=== PATIENT | male | born 1950 | race Asian ===

== ENCOUNTER 2017-05-08 09:08 | Emergency (ER) | payer OTHER ==
[~2017-05-08] VITALS: Ht 175.3 cm; Wt 85.9 kg
[2017-05-08] MEDS ORDERED: MECLIZINE HCL 25 MG TABLET PO ONE (09:15)
[2017-05-08] MEDS ORDERED: MECL12.585 PO (09:15)
[2017-05-08 10:51] VITALS: BP 135/94
== END 2017-05-08 11:21 | disposition home or self-care (01) ==
LOC: EMS 09:09
DX: R42 Dizziness and giddiness (principal); R11.0 Nausea
CPT/HCPCS: 70450; 99284

== ENCOUNTER 2017-10-31 12:47 | Emergency (ER) | payer BC, OTHER ==
[~2017-10-31] VITALS: Ht 175.3 cm; Wt 72.7 kg
[~2017-10-31 12:47] MED LIST: MECL12.585 PO
[2017-10-31 14:17] LABS: INFLUENZA TYPE A NEGATIVE FOR TYPE A (NEGATIVE); INFLUENZA TYPE B NEGATIVE FOR TYPE B (NEGATIVE)
[2017-10-31] MEDS ORDERED: METHOCARBAMOL 500 MG TABLET PO ONE (19:00)
[2017-10-31] MEDS ORDERED: LIDOCAINE HCL 5% TRANSDERMAL PATCH TD ONE (19:00)
[2017-10-31] MEDS ORDERED: KETOROLAC TROMETHAMINE 30 MG/ML VIAL IM ONE (19:00)
[2017-10-31 20:03] LABS: BASOPHILS # (AUTO) 0.05 K/uL (0.00-0.20); BASOPHILS % (AUTO) 0.5 % (0.0-2.0); EOSINOPHILS # (AUTO) 0.13 K/uL (0.00-0.70); EOSINOPHILS % (AUTO) 1.38 % (1.0-6.0); HEMOGLOBIN 12.9 g/dL (13.5-17.5); LYMPHOCYTES # (AUTO) 1.3 K/uL (1.0-4.8); LYMPHOCYTES % (AUTO) 14.3 % (22.0-44.0); MEAN CORPUSCULAR HEMOGLOBIN 29.2 pg (26.0-34.0); MEAN CORPUSCULAR HGB CONC 33.1 G/dL (31.0-37.0); MEAN CORPUSCULAR VOLUME 88 fL (80-100); MONOCYTES # (AUTO) 0.5 K/uL (0.1-1.0); MONOCYTES % (AUTO) 5.8 % (2.0-9.0); NEUTROPHILS # (AUTO) 7.2 K/uL (1.8-7.7); NEUTROPHILS % (AUTO) 78.1 % (40.0-70.0); PLATELET COUNT (AUTO) 316 K/uL (150-450); RED BLOOD CELL COUNT(AUTO) 4.42 MIL/uL (4.50-5.90); RED CELL DISTRIBUTION WIDTH 14.1 % (11.5-14.5)
[2017-10-31 20:37] LABS: ANION GAP 8 mmol/L (8-16); CALCIUM, TOTAL 8.5 mg/dL (8.8-10.5); CARBON DIOXIDE 28 mmol/L (22-29); CHLORIDE 100 mmol/L (98-107); CREATININE 0.89 mg/dL (0.60-1.30); GLOMERULAR FILTR. RATE CALC > 60 mL/min (>60); GLUCOSE,RANDOM 103 mg/dL (70-110); POTASSIUM 3.1 mmol/L (3.5-5.1); SODIUM SERUM 136 mmol/L (136-145); UREA NITROGEN, BLOOD 8 mg/dL (7-18)
[2017-10-31 20:51] VITALS: BP 143/87
== END 2017-10-31 21:26 | disposition home or self-care (01) ==
LOC: EMS 12:50
DX: M54.41 Lumbago with sciatica, right side (principal); J40 Bronchitis, not specified as acute or chronic; R03.0 Elevated blood-pressure reading, without diagnosis of hypertension
CPT/HCPCS: 36415; 71046; 72100; 80048; 85025; 87804; 96372; 99285; J1885

== ENCOUNTER 2017-11-12 09:59 | Inpatient (IN) | payer BC, OTHER ==
[~2017-11-12] VITALS: Ht 175.3 cm; Wt 73.6 kg
[2017-11-12] MEDS ORDERED: TRAM50TA4 PO (10:03)
[2017-11-12 10:25] LABS: BASOPHILS % (AUTO) 0.5 % (0.0-2.0); EOSINOPHILS % (AUTO) 2.5 % (1.0-6.0); HEMATOCRIT 39.4 % (41-53); HEMOGLOBIN 13.4 g/dL (13.5-17.5); LYMPHOCYTES % (AUTO) 8.6 % (22.0-44.0); MEAN CORPUSCULAR HEMOGLOBIN 29.9 pg (26.0-34.0); MEAN CORPUSCULAR VOLUME 88 fL (80-100); MONOCYTES # (AUTO) 0.8 K/uL (0.1-1.0); MONOCYTES % (AUTO) 6.6 % (2.0-9.0); NEUTROPHILS # (AUTO) 9.8 K/uL (1.8-7.7); NEUTROPHILS % (AUTO) 81.8 % (40.0-70.0); PLATELET COUNT (AUTO) 426 K/uL (150-450); RED BLOOD CELL COUNT(AUTO) 4.48 MIL/uL (4.50-5.90); RED CELL DISTRIBUTION WIDTH 13.8 % (11.5-14.5)
[2017-11-12] MEDS ORDERED: HYDROmorphone 2 MG/ML SYRINGE IVP ONE ×2 (11:45→12:45)
[2017-11-12] MEDS ORDERED: ONDANSETRON HCL 4 MG/2 ML VIAL IVP ONE (11:45)
[2017-11-12 11:51] LABS: CALCIUM, TOTAL 9.5 mg/dL (8.8-10.5); CREATININE 1.24 mg/dL (0.60-1.30); POTASSIUM 4.5 mmol/L (3.5-5.1)
[2017-11-12 11:57] LABS: ALBUMIN 2.5 g/dL (3.4-5.0); BILIRUBIN,TOTAL 1.7 mg/dL (0.1-1.0); TOTAL PROTEIN, SERUM 8.9 g/dL (6.4-8.2)
[2017-11-12 13:05] LABS: APPEARANCE,URINE CLEAR (CLEAR); GLUCOSE, URINE (UA) NEGATIVE (NEGATIVE); KETONES,URINE >=80 mg/dL (NEGATIVE); LEUKOCYTE ESTERASE ,URINE TRACE (NEGATIVE); NITRATE,URINE NEGATIVE (NEGATIVE); OCCULT BLOOD,URINE NEGATIVE (NEGATIVE); PH,URINE 6.5 (5.0-8.0); PROTEIN,URINE TRACE (NEGATIVE)
[2017-11-12 13:06] LABS: BILIRUBIN,URINE PRELIM. POSITIVE (NEGATIVE); RBC,URINE None Seen /HPF (0-2); WBC,URINE 0-2 /HPF (0-5)
[2017-11-12 13:07] LABS: BACTERIA,URINE None Seen /HPF (None Seen); RENAL EPITHELIAL CELLS,URINE Rare /LPF (None Seen)
[2017-11-12] MEDS ORDERED: ONDANSETRON HCL 4 MG/2 ML VIAL IVP PRN ×2 (13:45→21:00)
[2017-11-12] MEDS ORDERED: 0.9% SODIUM CHLORIDE 10 ML SYRINGE IVP PRN (13:45)
[2017-11-12] MEDS ORDERED: ACETAMINOPHEN 325 MG TABLET PO PRN ×2 (13:45→21:00)
[2017-11-12] MEDS ORDERED: HYDROmorphone 2 MG/ML SYRINGE IVP PRN (13:45)
[2017-11-12] MEDS ORDERED: OxyCODONE HCL/ACETAMINOPHEN 5-325 MG TABLET PO PRN (13:45)
[2017-11-12] MEDS ORDERED: MethylPREDNISolone SOD SUCC 125 MG/2 ML VIAL IVP ONE (14:00)
[2017-11-12] MEDS ORDERED: DiphenhydrAMINE HCL 50 MG/ML VIAL IVP ONE (14:00)
[2017-11-12] MEDS ORDERED: IOVERSOL 320 MG/ML 100 ML VIAL ONE (15:16)
[2017-11-12] MEDS ORDERED: SODIUM CHLORIDE 0.9% 1,000 ML IV ONE ×2 (16:00→21:45)
[2017-11-12 16:57] VITALS: BP 144/91
[2017-11-12 19:28] VITALS: BP 113/78
[2017-11-12] MEDS ORDERED: ALBUTEROL SULFATE 2.5 MG/0.5 ML NEB SOLUTION NEB PRN (21:00)
[2017-11-12] MEDS ORDERED: MAGNESIUM HYDROXIDE SUSPENSION 30 ML UDCUP PO PRN (21:00)
[2017-11-12] MEDS ORDERED: BISACODYL 10 MG RECTAL RECTAL SUPPOSITORY PR PRN (21:00)
[2017-11-12] MEDS: DOCUSATE SODIUM 100 MG CAPSULE PO SCH (22:01)
[2017-11-12 22:27] LABS: INR 1.2 (0.9-1.1); PROTHROMBIN TIME 12.5 SEC (9.4-11.6)
[2017-11-12 23:11] VITALS: BP 127/78
[2017-11-13 04:14] VITALS: BP 120/72
[2017-11-13] MEDS ORDERED: INFLUENZA VIRUS VACCINE QVS 2017-18 (3YR+)/PF 60 MCG/0.5 ML SYRINGE IM ONE (06:30)
[2017-11-13] MEDS: MORPHINE SULFATE 2 MG/ML SYRINGE IVP PRN ×2 (06:43→18:56)
[2017-11-13 08:02] VITALS: BP 123/80
[2017-11-13 08:15] LABS: BASOPHILS # (AUTO) 0.02 K/uL (0.00-0.20); BASOPHILS % (AUTO) 0.2 % (0.0-2.0); EOSINOPHILS % (AUTO) 0 % (1.0-6.0); HEMATOCRIT 39.8 % (41-53); HEMOGLOBIN 13.4 g/dL (13.5-17.5); LYMPHOCYTES # (AUTO) 0.6 K/uL (1.0-4.8); LYMPHOCYTES % (AUTO) 5.1 % (22.0-44.0); MEAN CORPUSCULAR HEMOGLOBIN 29.8 pg (26.0-34.0); MEAN CORPUSCULAR HGB CONC 33.6 G/dL (31.0-37.0); MEAN CORPUSCULAR VOLUME 89 fL (80-100); MONOCYTES # (AUTO) 0.3 K/uL (0.1-1.0); MONOCYTES % (AUTO) 2.1 % (2.0-9.0); NEUTROPHILS # (AUTO) 11.7 K/uL (1.8-7.7); PLATELET COUNT (AUTO) 427 K/uL (150-450); RED CELL DISTRIBUTION WIDTH 14.2 % (11.5-14.5)
[2017-11-13 08:18] LABS: NEUTROPHILS % (AUTO) 92.7 % (40.0-70.0)
[2017-11-13 08:21] LABS: ANION GAP 9 mmol/L (8-16); CALCIUM, TOTAL 9.1 mg/dL (8.8-10.5); CARBON DIOXIDE 28 mmol/L (22-29); CHLORIDE 100 mmol/L (98-107); CREATININE 0.88 mg/dL (0.60-1.30); GLOMERULAR FILTR. RATE CALC > 60 mL/min (>60); GLUCOSE,RANDOM 142 mg/dL (70-110); POTASSIUM 4.5 mmol/L (3.5-5.1); SODIUM SERUM 137 mmol/L (136-145); UREA NITROGEN, BLOOD 13 mg/dL (7-18)
[2017-11-13] MEDS ORDERED: ENOXAPARIN SODIUM 40 MG/0.4 ML PF SYRINGE SQ SCH (09:00)
[2017-11-13] MEDS ORDERED: FentaNYL CITRATE-PF 100 MCG/2 ML VIAL ONE (09:32)
[2017-11-13] MEDS ORDERED: MIDAZOLAM HCL 2 MG/2 ML VIAL ONE (09:32)
[2017-11-13] MEDS ORDERED: NALOXONE HCL 0.4 MG/ML VIAL ONE (09:33)
[2017-11-13] MEDS ORDERED: LIDOCAINE HCL/PF 1% 30 ML VIAL ONE (09:33)
[2017-11-13] MEDS ORDERED: FLUMAZENIL 0.1 MG/ML 5 ML VIAL IVP ONE (09:33)
[2017-11-13] MEDS ORDERED: FentaNYL CITRATE-PF 100 MCG/2 ML VIAL IVP ONE (10:09)
[2017-11-13] MEDS ORDERED: MIDAZOLAM HCL 2 MG/2 ML VIAL IVP ONE (10:09)
[2017-11-13] MEDS: DOCUSATE SODIUM 100 MG CAPSULE PO SCH ×2 (10:49→20:47)
[2017-11-13] MEDS: OxyCODONE HCL/ACETAMINOPHEN 5-325 MG TABLET PO PRN ×2 (10:49→20:46)
[2017-11-13] MEDS: PANTOPRAZOLE SODIUM 40 MG DR TABLET PO SCH (10:49)
[2017-11-13 11:29] VITALS: BP 118/76
[2017-11-13 15:35] VITALS: BP 117/79
[2017-11-13 19:43] VITALS: BP 115/75
[2017-11-13 23:44] VITALS: BP 116/64
[2017-11-14] MEDS: MORPHINE SULFATE 2 MG/ML SYRINGE IVP PRN ×4 (01:26→11:33)
[2017-11-14] MEDS: OxyCODONE HCL/ACETAMINOPHEN 5-325 MG TABLET PO PRN ×3 (03:17→18:08)
[2017-11-14 03:22] VITALS: BP 127/83
[2017-11-14 07:54] VITALS: BP 136/88
[2017-11-14 08:37] VITALS: BP 132/86
[2017-11-14] MEDS ORDERED: ENOXAPARIN SODIUM 40 MG/0.4 ML PF SYRINGE SQ SCH (09:00)
[2017-11-14] MEDS: PANTOPRAZOLE SODIUM 40 MG DR TABLET PO SCH (09:21)
[2017-11-14] MEDS: DOCUSATE SODIUM 100 MG CAPSULE PO SCH (09:21)
[2017-11-14 12:41] VITALS: BP 134/86
[2017-11-14] MEDS: MORPHINE SULFATE 4 MG/ML SYRINGE IVP PRN ×2 (16:02→18:42)
[2017-11-14 16:20] VITALS: BP 119/75
[2017-11-14] MEDS ORDERED: HYDR-309 PO (18:31)
[2017-11-14] MEDS ORDERED: DOCU100C33 PO (18:32)
== END 2017-11-14 19:00 | disposition home or self-care (01) | DRG 204 ==
LOC: EMS 10:00 → 4E 14:19
PROVIDERS: ADMIT Internal Medicine; ATTEND Internal Medicine
PROC: 0BBJ3ZX Excision of Left Lower Lung Lobe, Percutaneous Approach, Diagnostic (ICD-10-PCS; principal; 2017-11-13)
PROC: 3E0234Z Introduction of Serum, Toxoid and Vaccine into Muscle, Percutaneous Approach (ICD-10-PCS; 2017-11-13)
DX: R91.8 Other nonspecific abnormal finding of lung field (principal); C79.51 Secondary malignant neoplasm of bone; C80.1 Malignant (primary) neoplasm, unspecified; E87.1 Hypo-osmolality and hyponatremia; N28.89 Other specified disorders of kidney and ureter; Z79.899 Other long term (current) drug therapy; Z23 Encounter for immunization
CPT/HCPCS: 32405; 71260; 72193; 74160; 74176; 87015; 87070; 87205; 88305; 88341; 88342; 93005; 96374; 96375; 96376; 99285; J1170; J1200; J1650; J2250; J2270; J2310; J2405; J2930; J3010; J3490; J7030

== ENCOUNTER 2018-01-15 07:24 | Emergency (ER) | payer MEDICARE, OTHER ==
[~2018-01-15] VITALS: Ht 175.3 cm; Wt 65.0 kg
[~2018-01-15 07:24] MED LIST changes: +DOCU100C33 PO; +FENT100PAT TD; -MECL12.585 PO; +MEDR4 PO; +ONDA4 PO; +OXYC10IR PO
[2018-01-15 07:57] LABS: BASOPHILS % (AUTO) 1.1 % (0.0-2.0); EOSINOPHILS % (AUTO) 1.8 % (1.0-6.0); HEMATOCRIT 31.8 % (41-53); HEMOGLOBIN 10.7 g/dL (13.5-17.5); LYMPHOCYTES # (AUTO) 1.4 K/uL (1.0-4.8); MEAN CORPUSCULAR HEMOGLOBIN 28.3 pg (26.0-34.0); MEAN CORPUSCULAR HGB CONC 33.7 G/dL (31.0-37.0); MEAN CORPUSCULAR VOLUME 84 fL (80-100); MONOCYTES # (AUTO) 0.7 K/uL (0.1-1.0); MONOCYTES % (AUTO) 4.7 % (2.0-9.0); NEUTROPHILS # (AUTO) 12.7 K/uL (1.8-7.7); NEUTROPHILS % (AUTO) 83.4 % (40.0-70.0); PLATELET COUNT (AUTO) 558 K/uL (150-450); RED BLOOD CELL COUNT(AUTO) 3.78 MIL/uL (4.50-5.90); RED CELL DISTRIBUTION WIDTH 16.1 % (11.5-14.5)
[2018-01-15 08:03] LABS: BILIRUBIN,URINE NEGATIVE (NEGATIVE); GLUCOSE, URINE (UA) NEGATIVE (NEGATIVE); KETONES,URINE NEGATIVE (NEGATIVE); LEUKOCYTE ESTERASE ,URINE SMALL (NEGATIVE); NITRATE,URINE NEGATIVE (NEGATIVE); OCCULT BLOOD,URINE LARGE (NEGATIVE); PH,URINE 7.5 (5.0-8.0); PROTEIN,URINE NEGATIVE (NEGATIVE)
[2018-01-15 08:06] LABS: ANION GAP 9 mmol/L (8-16); CARBON DIOXIDE 31 mmol/L (22-29); CHLORIDE 94 mmol/L (98-107); CREATININE 0.76 mg/dL (0.60-1.30); GLOMERULAR FILTR. RATE CALC > 60 mL/min (>60); GLUCOSE,RANDOM 115 mg/dL (70-110); POTASSIUM 3.5 mmol/L (3.5-5.1); SODIUM SERUM 134 mmol/L (136-145); UREA NITROGEN, BLOOD 9 mg/dL (7-18)
[2018-01-15 08:10] LABS: INR 1.1 (0.9-1.1); PROTHROMBIN TIME 11.3 SEC (9.4-11.6)
[2018-01-15 08:10] LABS: APPEARANCE,URINE HAZY (CLEAR)
[2018-01-15 08:11] LABS: ALANINE AMINOTRANSFERASE 96 U/L (12-78); ALBUMIN 1.8 g/dL (3.4-5.0); ALKALINE PHOSPHATASE 184 U/L (46-116); ASPARTATE AMINOTRANSFERASE 41 U/L (15-37); BILIRUBIN,TOTAL 0.5 mg/dL (0.1-1.0); TOTAL PROTEIN, SERUM 7.9 g/dL (6.4-8.2)
[2018-01-15 08:14] LABS: BACTERIA,URINE Few /HPF (None Seen); SQUAMOUS EPITHELIAL CELL,UR None Seen /LPF (None Seen)
[2018-01-15] MEDS ORDERED: ONDANSETRON HCL 4 MG/2 ML VIAL IVP ONE (08:15)
[2018-01-15] MEDS ORDERED: MORPHINE SULFATE 4 MG/ML SYRINGE IVP ONE ×2 (08:15→14:30)
[2018-01-15] MEDS ORDERED: SODIUM CHLORIDE 0.9% 1,000 ML IV ONE (09:15)
[2018-01-15] MEDS ORDERED: FentaNYL CITRATE-PF 100 MCG/2 ML VIAL ONE (11:06)
[2018-01-15] MEDS ORDERED: LIDOCAINE HCL/PF 1% 30 ML VIAL ONE (11:06)
[2018-01-15] MEDS ORDERED: MIDAZOLAM HCL 2 MG/2 ML VIAL ONE (11:06)
[2018-01-15] MEDS ORDERED: FentaNYL CITRATE-PF 100 MCG/2 ML VIAL IVP ONE (12:10)
[2018-01-15] MEDS ORDERED: MIDAZOLAM HCL 2 MG/2 ML VIAL IVP ONE (12:10)
[2018-01-15] MEDS ORDERED: CIPROFLOXACIN HCL 250 MG TABLET PO ONE (14:00)
[2018-01-15 14:40] VITALS: BP 127/85
== END 2018-01-15 15:10 | disposition home or self-care (01) ==
LOC: EMS 07:25
DX: T83.090A Other mechanical complication of cystostomy catheter, initial encounter (principal); C78.00 Secondary malignant neoplasm of unspecified lung; G89.29 Other chronic pain; R33.9 Retention of urine, unspecified; F11.90 Opioid use, unspecified, uncomplicated; Z88.8 Allergy status to other drugs, medicaments and biological substances
CPT/HCPCS: 36415; 76770; 77012; 80053; 81001; 85025; 85610; 85730; 87086; 96361; 96374; 96375; 96376; 99285; J2250; J2270; J2405; J3010; J7030; J3490

== ENCOUNTER 2018-02-03 08:20 | Emergency (ER) | payer OTHER, MEDICARE ==
[~2018-02-03] VITALS: Ht 177.8 cm; Wt 63.6 kg
[2018-02-03] MEDS ORDERED: MORP10SY4 PO (08:49)
[2018-02-03] MEDS ORDERED: LORA2TAB2 PO (08:49)
[2018-02-03 09:06] LABS: EOSINOPHILS % (AUTO) 0.6 % (1.0-6.0); HEMATOCRIT 28.6 % (41-53); HEMOGLOBIN 9.5 g/dL (13.5-17.5); LYMPHOCYTES # (AUTO) 0.4 K/uL (1.0-4.8); LYMPHOCYTES % (AUTO) 2.7 % (22.0-44.0); MEAN CORPUSCULAR HGB CONC 33.4 G/dL (31.0-37.0); MEAN CORPUSCULAR VOLUME 84 fL (80-100); MONOCYTES # (AUTO) 0.7 K/uL (0.1-1.0); MONOCYTES % (AUTO) 4.2 % (2.0-9.0); NEUTROPHILS # (AUTO) 15.3 K/uL (1.8-7.7); PLATELET COUNT (AUTO) 633 K/uL (150-450); RED BLOOD CELL COUNT(AUTO) 3.41 MIL/uL (4.50-5.90); RED CELL DISTRIBUTION WIDTH 16.5 % (11.5-14.5)
[2018-02-03 09:09] LABS: NEUTROPHILS % (AUTO) 92.5 % (40.0-70.0)
[2018-02-03 09:19] LABS: INR 1.2 (0.9-1.1); PROTHROMBIN TIME 12.2 SEC (9.4-11.6)
[2018-02-03 09:22] LABS: ANION GAP 6 mmol/L (8-16); CALCIUM, TOTAL 9.5 mg/dL (8.8-10.5); CARBON DIOXIDE 31 mmol/L (22-29); CHLORIDE 90 mmol/L (98-107); CREATININE 0.69 mg/dL (0.60-1.30); GLOMERULAR FILTR. RATE CALC > 60 mL/min (>60); GLUCOSE,RANDOM 127 mg/dL (70-110); POTASSIUM 3.8 mmol/L (3.5-5.1); SODIUM SERUM 127 mmol/L (136-145); UREA NITROGEN, BLOOD 15 mg/dL (7-18)
[2018-02-03 09:28] LABS: ALANINE AMINOTRANSFERASE 75 U/L (12-78); ALBUMIN 1.6 g/dL (3.4-5.0); ALKALINE PHOSPHATASE 281 U/L (46-116); ASPARTATE AMINOTRANSFERASE 49 U/L (15-37); BILIRUBIN,TOTAL 0.9 mg/dL (0.1-1.0); TOTAL PROTEIN, SERUM 7.8 g/dL (6.4-8.2)
[2018-02-03] MEDS ORDERED: LIDOCAINE HCL/PF 1% 5 ML VIAL ONE (09:45)
[2018-02-03] MEDS ORDERED: FentaNYL CITRATE-PF 100 MCG/2 ML VIAL ONE (09:46)
[2018-02-03] MEDS ORDERED: MIDAZOLAM HCL 2 MG/2 ML VIAL ONE (09:47)
[2018-02-03] MEDS ORDERED: NALOXONE HCL 0.4 MG/ML VIAL ONE (09:47)
[2018-02-03] MEDS ORDERED: FLUMAZENIL 0.1 MG/ML 5 ML VIAL IVP ONE (09:47)
[2018-02-03] MEDS ORDERED: FentaNYL CITRATE-PF 100 MCG/2 ML VIAL IVP ONE (11:12)
[2018-02-03] MEDS ORDERED: MIDAZOLAM HCL 2 MG/2 ML VIAL IVP ONE (11:12)
[2018-02-03] MEDS ORDERED: SODIUM CHLORIDE 0.9% 1,000 ML IV ONE (12:15)
[2018-02-03 13:54] VITALS: BP 120/62
== END 2018-02-03 14:19 | disposition home or self-care (01) ==
LOC: EMS 08:22
DX: Z46.6 Encounter for fitting and adjustment of urinary device (principal); M19.90 Unspecified osteoarthritis, unspecified site; R79.1 Abnormal coagulation profile; Z85.118 Personal history of other malignant neoplasm of bronchus and lung; Z79.899 Other long term (current) drug therapy
CPT/HCPCS: 36415; 77012; 80053; 85025; 85610; 85730; 96374; 96375; 99285; J2250; J3010; J3490; J7030; J2310

== ENCOUNTER 2018-02-14 11:35 | Emergency (ER) | payer MEDICARE, OTHER ==
[~2018-02-14] VITALS: Ht 170.2 cm; Wt 70.5 kg
[~2018-02-14 11:35] MED LIST changes: +LORA2TAB2 PO; +MORP10SY4 PO
[2018-02-14] MEDS ORDERED: MORPHINE SULFATE 10 MG/ML SYRINGE IVP ONE (11:45)
[2018-02-14] MEDS ORDERED: MORPHINE SULFATE 10 MG/5 ML SOLUTION UDCUP PO ONE (11:45)
[2018-02-14] MEDS ORDERED: ONDANSETRON HCL 4 MG TABLET PO ONE (11:45)
[2018-02-14] MEDS ORDERED: ONDANSETRON HCL 4 MG/2 ML VIAL IVP ONE ×3 (12:15→20:15)
[2018-02-14 12:21] LABS: BASOPHILS % (AUTO) 0.7 % (0.0-2.0); EOSINOPHILS % (AUTO) 0.7 % (1.0-6.0); HEMATOCRIT 27.4 % (41-53); LYMPHOCYTES # (AUTO) 0.5 K/uL (1.0-4.8); LYMPHOCYTES % (AUTO) 3.3 % (22.0-44.0); MEAN CORPUSCULAR HGB CONC 32.9 G/dL (31.0-37.0); MEAN CORPUSCULAR VOLUME 85 fL (80-100); MONOCYTES # (AUTO) 0.8 K/uL (0.1-1.0); MONOCYTES % (AUTO) 4.8 % (2.0-9.0); NEUTROPHILS # (AUTO) 15.1 K/uL (1.8-7.7); PLATELET COUNT (AUTO) 547 K/uL (150-450); RED BLOOD CELL COUNT(AUTO) 3.22 MIL/uL (4.50-5.90); RED CELL DISTRIBUTION WIDTH 16.7 % (11.5-14.5)
[2018-02-14 12:25] LABS: NEUTROPHILS % (AUTO) 90.5 % (40.0-70.0)
[2018-02-14 12:30] LABS: ANION GAP 8 mmol/L (8-16); CALCIUM, TOTAL 9.7 mg/dL (8.8-10.5); CARBON DIOXIDE 28 mmol/L (22-29); CHLORIDE 92 mmol/L (98-107); CREATININE 0.79 mg/dL (0.60-1.30); GLOMERULAR FILTR. RATE CALC > 60 mL/min (>60); GLUCOSE,RANDOM 122 mg/dL (70-110); POTASSIUM 4.4 mmol/L (3.5-5.1); SODIUM SERUM 128 mmol/L (136-145); UREA NITROGEN, BLOOD 10 mg/dL (7-18)
[2018-02-14 12:33] LABS: INR 1.1 (0.9-1.1); PROTHROMBIN TIME 11.4 SEC (9.4-11.6)
[2018-02-14 12:35] LABS: ALANINE AMINOTRANSFERASE 72 U/L (12-78); ALBUMIN 1.5 g/dL (3.4-5.0); ALKALINE PHOSPHATASE 256 U/L (46-116); ASPARTATE AMINOTRANSFERASE 64 U/L (15-37); BILIRUBIN,TOTAL 0.5 mg/dL (0.1-1.0); TOTAL PROTEIN, SERUM 8.2 g/dL (6.4-8.2)
[2018-02-14] MEDS ORDERED: IOHEXOL 180 MG/ML 20 ML VIAL ONE (12:42)
[2018-02-14] MEDS ORDERED: MIDAZOLAM HCL 2 MG/2 ML VIAL ONE (12:50)
[2018-02-14] MEDS ORDERED: FentaNYL CITRATE-PF 100 MCG/2 ML VIAL ONE (12:51)
[2018-02-14] MEDS ORDERED: FLUMAZENIL 0.1 MG/ML 5 ML VIAL IVP ONE (12:51)
[2018-02-14] MEDS ORDERED: NALOXONE HCL 0.4 MG/ML VIAL ONE (12:51)
[2018-02-14] MEDS ORDERED: SODIUM CHLORIDE 0.9% 2,000 ML IV ONE (14:45)
[2018-02-14 15:29] LABS: B-TYPE NATRIURETIC PEPTIDE 49 pg/mL (0-100)
[2018-02-14 15:48] LABS: APPEARANCE,URINE CLEAR (CLEAR); BILIRUBIN,URINE NEGATIVE (NEGATIVE); GLUCOSE, URINE (UA) NEGATIVE (NEGATIVE); KETONES,URINE NEGATIVE (NEGATIVE); LEUKOCYTE ESTERASE ,URINE NEGATIVE (NEGATIVE); NITRATE,URINE NEGATIVE (NEGATIVE); OCCULT BLOOD,URINE MODERATE (NEGATIVE); PROTEIN,URINE POS 1+ (NEGATIVE)
[2018-02-14 16:15] LABS: WBC,URINE 0-2 /HPF (0-5)
[2018-02-14 16:18] LABS: BACTERIA,URINE Few /HPF (None Seen); SQUAMOUS EPITHELIAL CELL,UR Few /LPF (None Seen)
[2018-02-14] MEDS ORDERED: SODIUM CHLORIDE 0.9% 1,000 ML IV ONE (16:30)
[2018-02-14] MEDS ORDERED: MORPHINE SULFATE 4 MG/ML SYRINGE IVP ONE ×2 (16:30→20:15)
[2018-02-14 18:21] VITALS: BP 123/79
== END 2018-02-14 20:25 | disposition home or self-care (01) ==
LOC: EEVIPCON 11:36 → EMS 11:36
DX: T85.691A Other mechanical complication of intraperitoneal dialysis catheter, initial encounter (principal); E86.0 Dehydration; F11.90 Opioid use, unspecified, uncomplicated; Z91.041 Radiographic dye allergy status; Z88.8 Allergy status to other drugs, medicaments and biological substances
CPT/HCPCS: 36415; 75989; 80053; 81001; 83605; 83880; 85025; 85610; 85730; 96361; 96374; 96375; 96376; 99285; J2270 ×2; J2405; J7030; Q9965; J2250; J2310; J3010; J3490